=== PATIENT | male | born 1975 | race Caucasian/White ===

== ENCOUNTER 2021-01-30 16:25 | Inpatient (IN) | payer OTHER ==
[~2021-01-30] VITALS: Ht 185.4 cm; Wt 129.0 kg
--- NOTE | 2021-01-30 16:58 | NUR ---
PT AMBULATED TO ROOM FOR TRIAGE WITH STEADY GAIT.
[2021-01-30] MEDS ORDERED: LISINOPRIL20 MG PO (17:18)
[2021-01-30] MEDS ORDERED: ASPIRIN325 MG PO (17:18)
[2021-01-30] MEDS ORDERED: HUMALOG100 UNIT/M SC (17:19)
[2021-01-30] MEDS ORDERED: METFORMIN HCL1000 MG PO (17:20)
[2021-01-30] MEDS ORDERED: TRESIBA100 UNIT/M SC (17:22)
[2021-01-30 17:37] LABS: HEMATOCRIT 39.4 % (39.0-50.0); HEMOGLOBIN 13.2 g/dl (14.0-18.0); IMMATURE GRANULOCYTES 0.7 % (0.0-5.0); MEAN CELL VOLUME 83.7 fL CALC (80.0-100.0); MEAN CORPUSCULAR HGB CONC 33.5 g/dL CAL (32.0-36.0); NEUT# 15.66 thou/uL (1.82-7.42); RED BLOOD COUNT 4.71 mill/uL (4.70-6.10); RED CELL DISTRI WIDTH 12.9 % (11.5-15.5)
[2021-01-30 17:38] LABS: URINE BILIRUBIN - DIPSTICK NEGATIVE (NEGATIVE); URINE BLOOD DIPSTICK TRACE-INTACT (NEGATIVE); URINE COLOR YELLOW; URINE GLUCOSE - DIPSTICK >=1000 mg/dL (NEGATIVE); URINE KETONE NEGATIVE (NEGATIVE); URINE LEUK ESTERASE TRACE (NEGATIVE); URINE PH 5.5 (4.5-8.0); URINE PROTEIN - DIPSTICK >=300 mg/dL (NEG-TRACE); URINE SPECIFIC GRAVITY 1.025; URINE UROBILINOGEN - DIPSTICK 0.2 E.U./dL (0.2)
[2021-01-30 17:39] LABS: URINE NITRITE - DIPSTICK NEGATIVE (Negative)
--- NOTE | 2021-01-30 17:45 | NUR ---
PT RESTING IN BED. IV MEDS INFUSING WITHOUT DIFFICULTY. STABLE ON MONITOR. AT BEDSIDE.
[2021-01-30 17:50] LABS: URINE BACTERIA FEW hpf; URINE SQUAMOUS EPITHELIAL CELL FEW EPI/hpf (0-FEW)
[2021-01-30 18:02] LABS: ALBUMIN 3.8 g/dL (3.2-5.0); ALKALINE PHOSPHATASE 72 u/l (38-126); AMYLASE 50 u/l (30-110); ANION GAP 16 (6-22 (CALC)); BILIRUBIN, TOTAL 0.2 mg/dL (0.0-1.4); BUN 26 mg/dL (9-20); BUN/CREATININE RATIO 28 (12-20 (CALC)); CARBON DIOXIDE 20 mmol/l (22-30); CHLORIDE 101 mmol/l (95-108); CREATININE 0.9 mg/dL (0.7-1.3); GFR > 60 ML/MIN (>=60 (CALC)); GFR FOR AFR.AMER. > 60 ML/MIN (>=60 (CALC)); LIPASE 88 u/l (23-300); POTASSIUM 4.8 mmol/l (3.5-5.1); SGOT/AST 23 u/l (17-59); SODIUM 132 mmol/l (137-146); TOTAL PROTEIN 7.3 g/dL (6.3-8.2)
--- NOTE | 2021-01-30 18:18 | NUR ---
PT MEDICATED FOR PAIN. WILL CONTINUE TO MONITOR.
--- NOTE | 2021-01-30 19:24 | NUR ---
ANTIBIOTICS STARTED AFTER BLOOD CULTRES COLLECTED BY LAB STAFF. PT AGREES WITH PLAN FOR OR TONIGHT.
--- NOTE | 2021-01-30 19:59 | NUR ---
CLOTHING AND PROSTETIC LEG REMOVED AND GIVEN TO SPOUSE. PT IN PATIENT GOWN. OR STAFF AT BEDSIDE FOR TRANSPORT TO OR
--- NOTE | 2021-01-30 20:02 | NUR ---
PLAN TO ADMIT TO FLOOR ROOM 268 AFTER OR [facility] FLOOR NURSE, PLAN TO OBTAIN REPORT ROM OR NURSE AFTER PROCEDURE. REPORT GIVEN TO GEREMIAS INFANT LEAD TEACHER.
[2021-01-30 22:45] VITALS: BP 124/64
[2021-01-30 23:00] VITALS: BP 124/62
[2021-01-30 23:15] VITALS: BP 110/58
--- NOTE | 2021-01-30 23:24 | NUR ---
STEPHANIE DRAIN EMPTIED OUTPUT 100CC OF PINK COLORED FLUID.
[2021-01-30 23:30] VITALS: BP 122/49
--- NOTE | 2021-01-30 23:54 | NUR ---
PATIENT UP TO FLOOR AT 2238THIS TIME, REPORT GIVEN BY NURSE CATALINA, PATIENT WAS TRANSPORTED VIA STRETCHER, PATIENT SLIDE TO BED USING USING 4 PERSON ASSIST, PATIENT WAS DROWSY, HOOKED TO O2 @ 2LPM VIA NC, BREATHING EVEN UNLABORED, PATIENT HAS 3 INCISION COVERED BY 4X4 AND TEGADERM, AND MIDLINE ABDOMINAL DRESSING CDI WITH STEPHANIE DRAIN X 1. WITH PINKISH COLOR FLUID DRAINAGE, PATIENT HAS AN IV LINE G20 ON RAC NS @ 125CC/HR INFUSING WELL, IV SITE APPEARS HEALTHY, SCD IN PLACE ON RT LEG, PATIENT IS A LEFT BKA, IN ROOM TO SETTLE PATIENT AND TO HELP WITH ADMISSION ASSESSMENT, [facility] UPDATED WITH THE HEIGHT, PATIENT RESTING WITH EYES CLOSED, CALL LIGHT AT REACH.
[2021-01-31] VITALS (7 sets, daily range): BP systolic 109–157; BP diastolic 46–90
--- NOTE | 2021-01-31 02:38 | NUR ---
P[ATIENT HAS NOT VOIDED YET, BLADDER WAS SCANNED 207ML.WILL CONTINUE TO MONITOR.
--- NOTE | 2021-01-31 03:39 | NUR ---
PATIENT C/O NAUSEA, PRN ZOFRAN GIVEN, STEPHANIE DRAIN EMPTIED, PEACH COLORED FLUID 150CC AND RECORDED.
[2021-01-31 05:19] LABS: HEMATOCRIT 37.6 % (39.0-50.0); HEMOGLOBIN 12.6 g/dl (14.0-18.0); IMMATURE GRANULOCYTES 0.4 % (0.0-5.0); MEAN CELL VOLUME 84.7 fL CALC (80.0-100.0); MEAN CORPUSCULAR HGB 28.4 pG CALC (26.0-32.0); MEAN CORPUSCULAR HGB CONC 33.5 g/dL CAL (32.0-36.0); NEUT# 15.22 thou/uL (1.82-7.42); RED BLOOD COUNT 4.44 mill/uL (4.70-6.10); RED CELL DISTRI WIDTH 13.1 % (11.5-15.5)
[2021-01-31 05:34] LABS: BUN 24 mg/dL (9-20); BUN/CREATININE RATIO 21 (12-20 (CALC)); CARBON DIOXIDE 17 mmol/l (22-30); CHLORIDE 105 mmol/l (95-108); CREATININE 1.1 mg/dL (0.7-1.3); GFR > 60 ML/MIN (>=60 (CALC)); GFR FOR AFR.AMER. > 60 ML/MIN (>=60 (CALC)); SODIUM 131 mmol/l (137-146)
[2021-01-31 05:36] LABS: ANION GAP 15 (6-22 (CALC))
--- NOTE | 2021-01-31 05:44 | NUR ---
PATIENT ASSISTED TO THE BATHROOM AND VOIDED, PATIENT C/O NAUSEA, NOTIFIED DR. PABON WITH ORDERS MADE.SENT TO [place] [facility].
--- NOTE | 2021-01-31 06:13 | NUR ---
STEPHANIE DRAIN EMTIED 50CC PINKISH IN COLOR.
[2021-01-31 06:34] LABS: POTASSIUM 6.4 mmol/l (3.5-5.1)
[2021-01-31 06:34] LABS: ANION GAP 14 (6-22 (CALC)); BUN 25 mg/dL (9-20); BUN/CREATININE RATIO 22 (12-20 (CALC)); CARBON DIOXIDE 17 mmol/l (22-30); CHLORIDE 105 mmol/l (95-108); CREATININE 1.1 mg/dL (0.7-1.3); GFR > 60 ML/MIN (>=60 (CALC)); GFR FOR AFR.AMER. > 60 ML/MIN (>=60 (CALC)); SODIUM 130 mmol/l (137-146)
[2021-01-31 06:35] LABS: POTASSIUM 5.9 mmol/l (3.5-5.1)
--- NOTE | 2021-01-31 07:00 | NUR ---
SHIFT CHANGE REPORT, PT SLEEPING BUT AROUSES TO VERBAL STIMULI, C/O ABD PAIN @ 7/10, TELE MONITOR PLACED A RESULT FROM ELEVATED POTASSIUM LEVELS AND PT INFORMED OF DECISION, IVF INFUSING, DRESSINGS X 3 TO ABD AND STEPHANIE DRAIN IN PLACE TO LLQ WITH YELLOWISH/SS DRAINAGE, CALL ALMAGUER IN REACH AND BED LOCKED IN LOWEST POSITION.
--- NOTE | 2021-01-31 07:24 | NUR ---
INFORMED DR DR PABON OF POTASSIUM 5.9, AND GLUCOSE 359, WITH ORDERS MADE.
--- NOTE | 2021-01-31 07:45 | NUR ---
PATIENT HOOKED TPO TELEMETRY, CALLED ED PATIENT'S READING SR 97
--- NOTE | 2021-01-31 08:40 | NUR ---
PT OFFERED MED ORDERED FOR ELEVATED K LEVELS, HE TOOK ONE TASTE OF MED THEN REMAKDED "ITS HORRIBLE", HE WAS EDUCATED ON REASON FOR MED AND FURTHER STATED HE CANT DRINK IT ALL AT ONCE BUT WILL TAKE IT IN SMALL AMOUNTS, WILL CONTINUE TO MONITOR.
--- NOTE | 2021-01-31 11:34 | NUR ---
PT SLEEPING IN SUPINE POSITION, LETHARGIC, AWAKENS EASILY TO VERBAL STIMULI, STILL SIPPING MED SINCE THIS AM, ADVISED MUST TRY TO INGEST IT ALL AT ONCE BUT REFUSES STATING HE IS NOT ABLE TO TOLERATE IT, WILL CONTINUE TO MONITOR.
--- NOTE | 2021-01-31 16:16 | NUR ---
UP AND AMBULATE TO BR INDEPENDENTLY, ADVISED TO CALL FOR ASSIST AND REMINDED OF FALL PRECAUTIONS, STATED UNDERSTANDING, PAIN CONCERNS ADDRESSED.
--- NOTE | 2021-01-31 20:00 | NUR ---
PHYSICAL ASSESMENT COMPLETE. PT CURRENTLY DENIES PAIN OR DISCOMFORT. SCHEDULED MEDICATIONS AND PRN MEDICATION ADMINISTERED, SEE E-MAR. PT DENIES ANY NEEDS AT THIS TIME. PLAN OF CARE REVIEWED, PT DENIES QUESTIONS, VERBALIZES UNDERSTANDING. ITEMS WITHIN REACH, BED LOCKED IN LOW POSITION W/ BEDRAILS UP X2. CALL ALMAGUER WITHIN REACH, AGREES TO CALL PRN.
[2021-02-01] VITALS (7 sets, daily range): BP systolic 122–158; BP diastolic 59–88
--- NOTE | 2021-02-01 | NUR ---
PT LAYING IN BED WITH EYES CLOSED, APPEARS TO BE SLEEPING, APPEARS COMFORTABLE AND IN NO DISTRESS. RESPIRATIONS REGULAR AND UNLABORED. ITEMS REMAIN WITHIN REACH, CALL ALMAGUER REMAINS WITHIN REACH. BED REMAINS LOCKED AND IN LOW POSITION WITH BEDRAILS UP X2. WILL CONTINUE TO MONITOR.
--- NOTE | 2021-02-01 03:11 | NUR ---
PT REMAINS CONFUSED. ALERT TO SELF/ PLACE BUT UNAWARE THAT SHE REMOVED HER VENTI-MASK, PURWICK AND O2 SENSOR. BLADDER SCANNER SHOWS 649 ML RETAINED IN PTS BLADDER AND IS UNABLE TO URINATE.
--- NOTE | 2021-02-01 03:47 | NUR ---
PT C/O OF MUSCLE SPASMS IN HER LEFT LEG. ADMINISTERED PRN FLEXRIL. PT HAS A BP OF 171/75. ADMINISTERED PRN APRESOLINE. WILL CONTINUE TO MONITOR.
--- NOTE | 2021-02-01 03:52 | NUR ---
PT IS IN BED WITH EYES CLOSED. RESPIRATIONS ARE EVEN AND UNLABORED WITH IV FLUIDS INFUSING. WILL CONTINUE TO MONITOR.
[2021-02-01 06:00] LABS: HEMATOCRIT 33.3 % (39.0-50.0); HEMOGLOBIN 11.1 g/dl (14.0-18.0); MEAN CELL VOLUME 86.9 fL CALC (80.0-100.0); MEAN CORPUSCULAR HGB CONC 33.3 g/dL CAL (32.0-36.0); RED BLOOD COUNT 3.83 mill/uL (4.70-6.10); RED CELL DISTRI WIDTH 13.7 % (11.5-15.5)
[2021-02-01 06:15] LABS: BUN 23 mg/dL (9-20); BUN/CREATININE RATIO 19 (12-20 (CALC)); CARBON DIOXIDE 17 mmol/l (22-30); CHLORIDE 108 mmol/l (95-108); CREATININE 1.2 mg/dL (0.7-1.3); GFR > 60 ML/MIN (>=60 (CALC)); GFR FOR AFR.AMER. > 60 ML/MIN (>=60 (CALC)); MAGNESIUM 1.4 mg/dL (1.6-2.3); SODIUM 133 mmol/l (137-146)
[2021-02-01 06:19] LABS: ANION GAP 12 (6-22 (CALC)); POTASSIUM 4.4 mmol/l (3.5-5.1)
--- NOTE | 2021-02-01 07:00 | NUR ---
SHIFT CHANGE REPORT, PT SLEEPING BUT AROUSES TO VERBAL STIMULI, ORIENTED, C/O ABD PAIN @ 02/10, ISSUE ADDRESSED, IVF INFUSING, TELE MONITOR IN PLACE, CALL ALMAGUER IN REACH AND BED LOCKED IN LOWEST POSITION
--- NOTE | 2021-02-01 12:00 | NUR ---
RESTING INBED, GETS UP INDEPENDENTLY AND AMBULATES TO BR, PAIN CONCERNS ADDRESSED.
--- NOTE | 2021-02-01 16:00 | NUR ---
DR GONZALES ROUNDED AND WROTE ORDERS, PT INFORMED OF NEW ORDERS AND GIVEN REASON, STATES UNDERSTANDING, ALL NEEDS ADDRESSED.
--- NOTE | 2021-02-01 20:00 | NUR ---
PT ASSESSMENT COMPLETED AT THIS TIME. FAMILY MEMBER IS STILL AT BEDSIDE, I INFORMED THEM THAT VISITING HOURS WERE OVER AND I WOULD GIVE THEM A MINUTE ALONE PRIOR TO HER LEAVING. NEITHER PT OR VISITOR RESPONDED.
--- NOTE | 2021-02-01 20:15 | NUR ---
PT'S VISITOR LEFT AT THIS TIME. PT ASKING FOR PAIN MEDICATION, WILL PROVIDE ORDERS AVAILABLE.
--- NOTE | 2021-02-01 20:30 | NUR ---
PT MEDICATED ORDERS PROVIDE AND FOR PAIN 6/10 ON PAIN SCALE.
--- NOTE | 2021-02-02 00:34 | NUR ---
PT MEDICATED FOR PAIN AND WITH IV ANTIBIOTIC THERAPY ORDER PROVIDE. PT WAS SLEEPING I ENTERED THE ROOM, DENIES ANY OTHER NEEDS AT THIS TIME.
[2021-02-02 04:00] VITALS: BP 146/83
--- NOTE | 2021-02-02 04:59 | NUR ---
PT MEDICATED ORDERS PROVIDE FOR PAIN MEDICATION IS SCEDULED AND IV ANTIBIOTIC THERAPY. STEPHANIE DRAIN EMPTIED OF 38CC OF CLOUDY LIGHT YELLOW DRAINAGE. PT WAS SLEEPING, RESPONDED TO ME, BUT KEPT HIS EYES CLOSED TO REMAIN RESTING AND STATED HE WAS TRYING TO STAY ASLEEP. NO S/O DISTRESS NOTED. DRESSING X3 TO ABD CDI
[2021-02-02 05:06] LABS: HEMATOCRIT 31.7 % (39.0-50.0); HEMOGLOBIN 10.3 g/dl (14.0-18.0); MEAN CELL VOLUME 88.3 fL CALC (80.0-100.0); MEAN CORPUSCULAR HGB 28.7 pG CALC (26.0-32.0); MEAN CORPUSCULAR HGB CONC 32.5 g/dL CAL (32.0-36.0); RED BLOOD COUNT 3.59 mill/uL (4.70-6.10); RED CELL DISTRI WIDTH 13.6 % (11.5-15.5)
[2021-02-02 05:24] LABS: ANION GAP 12 (6-22 (CALC)); BUN 19 mg/dL (9-20); BUN/CREATININE RATIO 17 (12-20 (CALC)); CARBON DIOXIDE 18 mmol/l (22-30); CHLORIDE 107 mmol/l (95-108); CREATININE 1.1 mg/dL (0.7-1.3); GFR > 60 ML/MIN (>=60 (CALC)); GFR FOR AFR.AMER. > 60 ML/MIN (>=60 (CALC)); POTASSIUM 4.5 mmol/l (3.5-5.1); SODIUM 133 mmol/l (137-146)
[2021-02-02 05:29] LABS: MAGNESIUM 1.8 mg/dL (1.6-2.3)
--- NOTE | 2021-02-02 07:25 | NUR ---
ASSESSMENT IS COMPLETED: IV SITE IS FREE FROM REDNESS OR EDEMA. HR IS REG,PULSES ARE STRONG ON RADIAL , AND R PEDAL. DRESSING ON ABD IS CDI. TELE MONITOR IN PLACE.
[2021-02-02] MEDS ORDERED: PERCOCET 5/325M1 TAB PO (07:50)
[2021-02-02] MEDS ORDERED: AUGMENTIN1 M1 PO (07:51)
[2021-02-02 09:00] VITALS: BP 149/76
--- NOTE | 2021-02-02 10:30 | NUR ---
CHANGED DRESSING ON ABD WHERE THE STEPHANIE IS IN PLACE. SOME DRAINAGE NOTED. EMPTIED STEPHANIE DRAIN OF 10CC YELLOW LOOK LIKE PUSS IN THE LINE. DEMONSTRATED TO PT ON THE EMPTYING, AND INSTRUCTED ON EMPTY 2 TIMES A DAY. VERBALIZED UNDERSTANDING.
--- NOTE | 2021-02-02 10:37 | NUR ---
IV SITE AND TELE DISCONTINUED CATHETER INTACT. NO REDNESS OR EDEMA.
--- NOTE | 2021-02-02 12:00 | NUR ---
PT IS LEAVING WITH SPOUSE AND ALL BELONGINGS. NO DISTRESS NOTED. IV SITE ALREADY TAKEN OUT. Discharge instructions given. Patient verbalizes understanding of same. Discharged in stable condition via Wheelchair to Home with family. All belongings sent with pt.
--- NOTE | 2021-02-05 10:48 | NUR ---
Pneumonia post discharge follow up call completed today, 02/05/21. Pt. states he is doing well. No fever, chills, or SOB since discharge. Pt. obtained discharge medications and is taking them without issue. Pt. will call for follow up appt with PCP tomorrow as office is closed today. No questions or concerns voiced by patient.
== END 2021-02-02 12:06 | disposition home or self-care (01) | DRG 339 ==
LOC: ED 16:25 → ED-I 19:00 → ED 19:06 → MS2 19:07
PROVIDERS: Nurse Practitioner; ADMIT Internal Medicine; ATTEND Internal Medicine
PROC: 0DTJ4ZZ Resection of Appendix, Percutaneous Endoscopic Approach (ICD-10-PCS; principal; 2021-01-30)
DX: K35.32 Acute appendicitis with perforation, localized peritonitis, and gangrene, without abscess (principal); N39.0 Urinary tract infection, site not specified; I10 Essential (primary) hypertension; E11.65 Type 2 diabetes mellitus with hyperglycemia; F17.210 Nicotine dependence, cigarettes, uncomplicated; B96.89 Other specified bacterial agents as the cause of diseases classified elsewhere; Z89.512 Acquired absence of left leg below knee; Z79.4 Long term (current) use of insulin; Z20.822 Contact with and (suspected) exposure to COVID-19
CPT/HCPCS: J0131; J1650; J2710; J3475; Q9967

== ENCOUNTER 2021-02-12 16:26 | Emergency (ER) | payer OTHER ==
[~2021-02-12] VITALS: Ht 185.4 cm; Wt 132.0 kg
[~2021-02-12 16:26] MED LIST: ASPIRIN325 MG PO; AUGMENTIN1 M1 PO; HUMALOG100 UNIT/M SC; LISINOPRIL20 MG PO; METFORMIN HCL1000 MG PO; PERCOCET 5/325M1 TAB PO; TRESIBA100 UNIT/M SC
[2021-02-12 17:08] VITALS: BP 181/79
[2021-02-12 17:29] LABS: HEMATOCRIT 34.8 % (39.0-50.0); HEMOGLOBIN 11.2 g/dl (14.0-18.0); IMMATURE GRANULOCYTES 1.8 % (0.0-5.0); MEAN CELL VOLUME 86.8 fL CALC (80.0-100.0); MEAN CORPUSCULAR HGB 27.9 pG CALC (26.0-32.0); MEAN CORPUSCULAR HGB CONC 32.2 g/dL CAL (32.0-36.0); NEUT# 10.49 thou/uL (1.82-7.42); RED BLOOD COUNT 4.01 mill/uL (4.70-6.10); RED CELL DISTRI WIDTH 12.9 % (11.5-15.5)
[2021-02-12 17:41] LABS: ALBUMIN 3.3 g/dL (3.2-5.0); ALKALINE PHOSPHATASE 80 u/l (38-126); AMYLASE 68 u/l (30-110); BUN 15 mg/dL (9-20); BUN/CREATININE RATIO 16 (12-20 (CALC)); CHLORIDE 97 mmol/l (95-108); CREATININE 0.9 mg/dL (0.7-1.3); GFR > 60 ML/MIN (>=60 (CALC)); GFR FOR AFR.AMER. > 60 ML/MIN (>=60 (CALC)); LIPASE 202 u/l (23-300); POTASSIUM 4.1 mmol/l (3.5-5.1); SGOT/AST 22 u/l (17-59); SODIUM 132 mmol/l (137-146); TOTAL PROTEIN 6.6 g/dL (6.3-8.2)
[2021-02-12 17:42] LABS: ANION GAP 15 (6-22 (CALC)); CARBON DIOXIDE 24 mmol/l (22-30)
[2021-02-12 17:53] LABS: MYOGLOBIN 52 ng/mL (0 - 121)
[2021-02-12] MEDS ORDERED: CIPROFLOXACN500 MG PO (19:11)
[2021-02-12] MEDS ORDERED: ULTRAM50 M1 PO (19:12)
== END 2021-02-12 20:23 | disposition home or self-care (01) | DRG 392 ==
LOC: ED 16:26
PROVIDERS: Emergency Medicine
DX: R10.31 Right lower quadrant pain (principal); D72.829 Elevated white blood cell count, unspecified; I10 Essential (primary) hypertension; E11.9 Type 2 diabetes mellitus without complications; Z79.4 Long term (current) use of insulin; F17.210 Nicotine dependence, cigarettes, uncomplicated; Z98.890 Other specified postprocedural states; Z89.512 Acquired absence of left leg below knee
CPT/HCPCS: Q9967

== ENCOUNTER 2021-02-19 20:16 | Emergency (ER) | payer OTHER ==
[~2021-02-19] VITALS: Ht 185.4 cm; Wt 130.0 kg
[~2021-02-19 20:16] MED LIST changes: +CIPROFLOXACN500 MG PO; +ULTRAM50 M1 PO
[2021-02-19 21:21] LABS: HEMATOCRIT 34.4 % (39.0-50.0); HEMOGLOBIN 11.1 g/dl (14.0-18.0); IMMATURE GRANULOCYTES 0.5 % (0.0-5.0); MEAN CELL VOLUME 85.4 fL CALC (80.0-100.0); MEAN CORPUSCULAR HGB 27.5 pG CALC (26.0-32.0); MEAN CORPUSCULAR HGB CONC 32.3 g/dL CAL (32.0-36.0); NEUT# 7.95 thou/uL (1.82-7.42); RED BLOOD COUNT 4.03 mill/uL (4.70-6.10); RED CELL DISTRI WIDTH 13.2 % (11.5-15.5)
[2021-02-19 21:36] LABS: ALBUMIN 3.4 g/dL (3.2-5.0); ALKALINE PHOSPHATASE 73 u/l (38-126); ANION GAP 13 (6-22 (CALC)); BUN 17 mg/dL (9-20); BUN/CREATININE RATIO 16 (12-20 (CALC)); CARBON DIOXIDE 27 mmol/l (22-30); CHLORIDE 98 mmol/l (95-108); GFR > 60 ML/MIN (>=60 (CALC)); GFR FOR AFR.AMER. > 60 ML/MIN (>=60 (CALC)); POTASSIUM 4.2 mmol/l (3.5-5.1); SGOT/AST 17 u/l (17-59); SODIUM 134 mmol/l (137-146); TOTAL PROTEIN 6.9 g/dL (6.3-8.2)
[2021-02-19 21:45] LABS: BILIRUBIN, TOTAL 0.2 mg/dL (0.0-1.4)
[2021-02-19 21:48] LABS: MYOGLOBIN 52 ng/mL (0 - 121)
[2021-02-20] MEDS ORDERED: ZITHROMAX250 MG PO (00:26)
[2021-02-20] MEDS ORDERED: BACTRIM DS1 TAB PO (00:26)
[2021-02-20 00:38] VITALS: BP 149/81
== END 2021-02-20 00:38 | disposition home or self-care (01) | DRG 195 ==
LOC: ED 20:16
PROVIDERS: Emergency Medicine
DX: J18.9 Pneumonia, unspecified organism (principal); T21.22XA Burn of second degree of abdominal wall, initial encounter; E11.9 Type 2 diabetes mellitus without complications; I10 Essential (primary) hypertension; F17.210 Nicotine dependence, cigarettes, uncomplicated; X08.8XXA Exposure to other specified smoke, fire and flames, initial encounter; Z89.512 Acquired absence of left leg below knee; Z79.4 Long term (current) use of insulin; Z20.822 Contact with and (suspected) exposure to COVID-19
CPT/HCPCS: Q9967